=== PATIENT | male | born 1960 | race Caucasian/White ===

== ENCOUNTER 2019-08-22 06:02 | Inpatient (IN) | payer BC ==
[2019-08-19 11:33] VITALS: BMI 26.4
[2019-08-22] MEDS ORDERED: Sodium Chloride 0.9% 10 ML ONE (06:29)
[2019-08-22 06:36] LABS: #Eosinphils 0.2 thou/uL (0.0-0.7); #Lymphocytes 1.5 thou/uL (1.20-3.40); #Monocytes 0.6 thou/uL (0.11-0.59); #Neutrophils 3.7 thou/uL (1.40-6.50); %Basophils 0.4 % (0.0-1.0); %Eosinophils 3.1 % (0.0-10.0); %Lymphocytes 24.7 % (21.0-51.0); %Monocytes 10.2 % (0.0-10.0); %Neutrophils 61.6 % (42.0-75.0); Hemoglobin 14.4 g/dL (14.0-18.0); Mean Corpuscular HGB CONC 32.6 g/dL (32.0-36.0); Mean Corpuscular Hemoglobin 26.3 pg (27.0-31.0); Mean Corpuscular Volume 80.6 fL (78.0-98.0); Mean Platelet Volume 7.2 fL (7.4-10.4); Platelet Count 201 thou/uL (130-400); RBC Distribution Width 12.9 % (11.5-14.5); Red Blood Cell (RBC) Count 5.47 mill/uL (4.70-6.10)
[2019-08-22 06:56] LABS: Anion Gap 15 mmol/L (10-20); BUN (Urea Nitrogen) 9 mg/dL (8.4-25.7); Calc. Creatinine Clearance 116 mL/min (70-130); Calcium 9.5 mg/dL (7.8-10.44); Carbon Dioxide 21 mmol/L (22-29); Chloride 107 mmol/L (98-107); Estimated GFR-MDRD 88; Glucose 159 mg/dL (70-105); Potassium 3.8 mmol/L (3.5-5.1); Sodium 139 mmol/L (136-145)
[2019-08-22] MEDS ORDERED: Fentanyl 100 MCG/2 ML VIAL ONE (07:19)
[2019-08-22] MEDS ORDERED: Midazolam HCl 2 mg/2 ml Vial ONE (07:21)
[2019-08-22] MEDS ORDERED: HYDROmorphone 2 MG/ML VIAL ONE (08:34)
[2019-08-22] MEDS ORDERED: Promethazine HCl 12.5 MG SUPP PR PRN (08:46)
[2019-08-22] MEDS ORDERED: Promethazine 25 MG TAB PO PRN (08:46)
[2019-08-22] MEDS ORDERED: Mag-Al 1200 mg/1200 mg/30 ML UDCUP PO PRN (08:46)
[2019-08-22] MEDS ORDERED: Promethazine HCl 25 MG/ML VIAL IM PRN (08:46)
[2019-08-22] MEDS ORDERED: tiZANidine HCl 4 MG TAB PO PRN (08:46)
[2019-08-22] MEDS ORDERED: Bisacodyl 10 MG SUPP PR PRN (08:46)
[2019-08-22] MEDS ORDERED: diphenhydrAMINE 50 MG/ML VIAL IVP PRN (08:46)
[2019-08-22] MEDS ORDERED: HYDROcodone/Acetaminophen 10/325 mg Tablet PO PRN ×2 (08:46)
[2019-08-22] MEDS ORDERED: Milk Of Magnesia 30 ML UDCUP PO PRN (08:46)
[2019-08-22] MEDS ORDERED: diphenhydrAMINE 25 MG CAP PO PRN (08:46)
[2019-08-22] MEDS ORDERED: traMADol HCl 50 MG TAB PO PRN ×2 (08:46)
[2019-08-22] MEDS ORDERED: Ondansetron PF 4 MG/2 ML Vial IVP PRN (08:49)
[2019-08-22] MEDS ORDERED: Morphine 2 MG/ML SYRINGE SLOW IVP PRN (08:53)
[2019-08-22] MEDS ORDERED: Metoclopramide HCl 10 MG/2 ML VIAL ONE ×2 (09:39)
[2019-08-22] MEDS ORDERED: Glycopyrrolate 0.2 MG/ML 5 ML SYRINGE ONE (09:39)
[2019-08-22] MEDS ORDERED: Rocuronium Bromide 10 MG/ML (10ML VIAL) ONE (09:39)
[2019-08-22] MEDS ORDERED: Ketorolac Tromethamine 30 MG/ML VIAL ONE (09:39)
[2019-08-22] MEDS ORDERED: Ondansetron PF 4 MG/2 ML Vial ONE (09:39)
[2019-08-22] MEDS ORDERED: PROPOFOL 200 MG/20 ML VIAL ONE (09:39)
[2019-08-22] MEDS ORDERED: Lidocaine 1% PF 5 ML VIAL ONE (09:39)
[2019-08-22] MEDS: Morphine 4 MG/ML VIAL SLOW IVP PRN ×2 (10:02→21:02)
[2019-08-22] MEDS: Sodium Chloride 0.9% 1,000 ML IV SCH (10:28)
--- NOTE | 2019-08-22 11:50 | OP ---
DATE OF PROCEDURE: 08/22/2019 COMBINATION MACHINE TOOL SETTER: Tommy Blanchard PA-C PROCEDURES PERFORMED: Removal of hardware L4 through S1, exploration of spinal fusion L4 through S1, pedicle screw instrumentation, L4 through S1, revision and fusion of L4 through S1, BMP and cancellous bone chips. DESCRIPTION OF PROCEDURE: The patient was brought to the operating room and intubated. He was rolled in the prone position on gel-filled chest rolls. The previous incision was reopened and bilateral hardware was identified. We explored the spinal fusion. It was unclear whether it was solid. We removed the left-sided nuts and rods and removed the left-sided S1 pedicle screw that had been loose. We replace this with a larger diameter and longer left S1 pedicle screw. The gomez was then secured between the screws, connected by nuts, which were final tightened. The wound was then extensively irrigated and MAC hemostasis was secured. A combination of BMP and cancellous bone chips was laid over the lamina on the posterolateral surfaces for the purpose of arthrodesis. Vancomycin powder was applied and the wound was closed in anatomic layers. Job ID: [id number]
[2019-08-22] MEDS: CEFAZOLIN 2 GM in Premix Bag 1 BAG IVPB SCH ×2 (14:42→21:02)
[2019-08-22] MEDS ORDERED: Atorvastatin Calcium 20 MG TAB PO SCH (21:00)
[2019-08-23 00:24] VITALS: TEMP 97.9
[2019-08-23] MEDS: Sodium Chloride 0.9% 1,000 ML IV SCH (01:10)
[2019-08-23 08:59] VITALS: BP 122/75
[2019-08-23] MEDS ORDERED: Amlodipine 5 MG TAB PO SCH (09:00)
[2019-08-23] MEDS ORDERED: Alogliptin 25 MG TAB PO SCH (09:00)
[2019-08-23] MEDS ORDERED: Hydrochlorothiazide 25 MG TAB PO SCH (09:00)
[2019-08-23] MEDS: Morphine 4 MG/ML VIAL SLOW IVP PRN (10:13)
--- NOTE | 2019-08-24 03:49 | DIS ---
DATE OF ADMISSION: 08/22/2019 DATE OF DISCHARGE: 08/23/2019 HOSPITAL COURSE: The patient is a 58-year-old male, recently evaluated in our office for progressive back and left leg pain and found to have a loosened left S1 screw. He underwent exploration and revision of L4-S1 fusion with removal of hardware on 08/22/2019. During the surgery, the left S1 screw was removed and replaced with a larger diameter screw. Following the surgery, the patient was transitioned to the Med/Surg floor, where his pain was well controlled with p.o. medications, he was tolerating a regular diet, and he was voiding appropriately. He ambulated easily throughout the department without any issues. He had good strength throughout. On exam, his incision remained clean, dry, and intact. The patient was provided with an LSO brace, which he was advised to wear for out of bed activities. We will plan to dismiss the patient to home. I have discussed home care and precautions. We will follow up with the patient in 2 weeks. Job ID: [id number]
[2019-08-24] MEDS ORDERED: Hydrochlorothiazide 25 MG TAB PO SCH (09:00)
== END 2019-08-23 10:30 | disposition home or self-care (01) | DRG 460 ==
LOC: SURG A 06:02 → SURG B 09:35
PROVIDERS: ADMIT Neurological Surgery; ATTEND Neurological Surgery
PROC: 0QP004Z Removal of Internal Fixation Device from Lumbar Vertebra, Open Approach (ICD-10-PCS; principal; 2019-08-22)
PROC: 0SG00J1 Fusion of Lumbar Vertebral Joint with Synthetic Substitute, Posterior Approach, Posterior Column, Open Approach (ICD-10-PCS; 2019-08-22)
PROC: 0SG30J1 Fusion of Lumbosacral Joint with Synthetic Substitute, Posterior Approach, Posterior Column, Open Approach (ICD-10-PCS; 2019-08-22)
PROC: 3E0V0GB Introduction of Recombinant Bone Morphogenetic Protein into Bones, Open Approach (ICD-10-PCS; 2019-08-22)
DX: M43.16 Spondylolisthesis, lumbar region (principal); Z79.899 Other long term (current) drug therapy; Z98.1 Arthrodesis status; Z98.890 Other specified postprocedural states; I10 Essential (primary) hypertension; E78.5 Hyperlipidemia, unspecified; E11.9 Type 2 diabetes mellitus without complications; Z79.4 Long term (current) use of insulin
CPT/HCPCS: 36415; 76000; 80048; 85025; 90471; 90732; 93005; 93010; C1713; G0009; J0690; J1170; J1885; J2001; J2250; J2270; J2405; J2704; J2765; J3010; J3370; J3490

== ENCOUNTER 2019-09-08 10:13 | Outpatient (CLI) | payer BC ==
--- NOTE | 2019-09-08 10:31 | RAD ---
XR Lumbar Spine 2 Or 3 View HISTORY: Follow-up of surgery COMPARISON: 12/21/2015 exam. FINDINGS: The vertebral bodies are normal in height. Bilateral pedicle screws are seen at L4, L5 and S1 with a fracture of one of the pedicle screws at S1 again noted. Markers of the disc implant are within the confines of the L4-5 disc level. IMPRESSION: Stable postop change.
== END 2019-09-08 10:14 | disposition home or self-care (01) ==
LOC: TBSIIMAG 10:13
PROVIDERS: ATTEND Neurological Surgery
DX: M43.16 Spondylolisthesis, lumbar region (principal); Z98.890 Other specified postprocedural states
CPT/HCPCS: 72100

== ENCOUNTER 2019-10-27 14:02 | Outpatient (CLI) | payer BC ==
--- NOTE | 2019-10-27 14:20 | RAD ---
Exam: Lumbar spine 2 views: HISTORY: Low back pain M54.5 COMPARISON: 09/08/2019 FINDINGS: Postop pedicle screw placement and internal fixation at L4, and L5 and S1 with intradiscal prosthesis at L4-L5. One of the S1 pedicle screws is fractured, stable. Generalized spondylosis. IMPRESSION: Stable postoperative changes
== END 2019-10-27 14:03 | disposition home or self-care (01) ==
LOC: TBSIIMAG 14:02
PROVIDERS: ATTEND Neurological Surgery
DX: M54.5 Low back pain (principal); Z98.890 Other specified postprocedural states
CPT/HCPCS: 72100